=== PATIENT | female | born 2000 | race Caucasian/White ===

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

== ENCOUNTER 2020-06-12 09:18 | Emergency (ER) | payer MEDICAID ==
[~2020-06-12] VITALS: Ht 165.1 cm; Wt 72.7 kg
[2020-06-12] MEDS ORDERED: ACETAMINOPHEN 500 MG TABLET PO ONE (10:00)
[2020-06-12 10:25] LABS: BASOPHILS % (AUTO) 0.4 % (0.0-2.0); EOSINOPHILS % (AUTO) 0.9 % (1.0-6.0); HEMATOCRIT 38.6 % (36-46); HEMOGLOBIN 13.5 g/dL (12.0-16.0); LYMPHOCYTES # (AUTO) 1.4 K/uL (1.0-4.8); LYMPHOCYTES % (AUTO) 17.6 % (22.0-44.0); MEAN CORPUSCULAR HEMOGLOBIN 30.7 pg (26.0-34.0); MEAN CORPUSCULAR HGB CONC 35.1 G/dL (31.0-37.0); MEAN CORPUSCULAR VOLUME 88 fL (80-100); MONOCYTES # (AUTO) 0.6 K/uL (0.1-1.0); MONOCYTES % (AUTO) 7.9 % (2.0-9.0); NEUTROPHILS # (AUTO) 5.8 K/uL (1.8-7.7); NEUTROPHILS % (AUTO) 73.2 % (40.0-70.0); PLATELET COUNT (AUTO) 280 K/uL (150-450); RED BLOOD CELL COUNT(AUTO) 4.41 MIL/uL (4.00-5.20); RED CELL DISTRIBUTION WIDTH 12.7 % (11.5-14.5)
[2020-06-12 10:37] LABS: ANION GAP 9 mmol/L (8-16); CALCIUM, TOTAL 8.4 mg/dL (8.8-10.5); CARBON DIOXIDE 25 mmol/L (22-29); CHLORIDE 102 mmol/L (98-107); CREATININE 0.84 mg/dL (0.60-1.30); GLOMERULAR FILTR. RATE CALC > 60 mL/min (>60); GLUCOSE,RANDOM 82 mg/dL (70-110); POTASSIUM 3.5 mmol/L (3.5-5.1); SODIUM SERUM 136 mmol/L (136-145); UREA NITROGEN, BLOOD 7 mg/dL (7-18)
[2020-06-12] MEDS ORDERED: SODIUM CHLORIDE 0.9% 100 ML ONE (11:12)
[2020-06-12] MEDS ORDERED: IOVERSOL 320 MG/ML 100 ML VIAL ONE (11:12)
[2020-06-12 12:53] VITALS: BP 108/61
== END 2020-06-12 13:05 | disposition home or self-care (01) ==
LOC: EMS 09:19
DX: O26.891 Other specified pregnancy related conditions, first trimester (principal); R07.81 Pleurodynia; Z3A.01 Less than 8 weeks gestation of pregnancy
CPT/HCPCS: 36415; 71045; 71275; 80048; 85025; 85379; 99285; J7050; Q9967

== ENCOUNTER 2021-07-11 14:18 | Emergency (ER) | payer MEDICAID, OTHER ==
[~2021-07-11] VITALS: Ht 165.1 cm; Wt 72.7 kg
[2021-07-11] MEDS ORDERED: ACETAMINOPHEN 500 MG TABLET PO ONE (15:00)
[2021-07-11 15:31] VITALS: BP 122/70
== END 2021-07-11 15:32 | disposition home or self-care (01) ==
LOC: EMS 14:22
DX: R51.9 Headache, unspecified (principal); R09.81 Nasal congestion; J45.909 Unspecified asthma, uncomplicated; Z20.822 Contact with and (suspected) exposure to COVID-19
CPT/HCPCS: 99283; U0003

== ENCOUNTER 2022-10-14 08:37 | Emergency (ER) | payer OTHER ==
[~2022-10-14] VITALS: Ht 165.1 cm; Wt 77.3 kg
[2022-10-14 08:56] LABS: COVID AG,FIA SOURCE NASAL SWAB
[2022-10-14 09:16] LABS: INFLUENZA TYPE A NEGATIVE FOR TYPE A (NEGATIVE); INFLUENZA TYPE B NEGATIVE FOR TYPE B (NEGATIVE)
[2022-10-14] MEDS ORDERED: AMOX250C4 PO (10:04)
[2022-10-14 10:10] VITALS: BP 122/87
== END 2022-10-14 10:22 | disposition home or self-care (01) ==
LOC: EMS 08:40
DX: J03.90 Acute tonsillitis, unspecified (principal); J45.909 Unspecified asthma, uncomplicated; Z90.49 Acquired absence of other specified parts of digestive tract; Z20.822 Contact with and (suspected) exposure to COVID-19
CPT/HCPCS: 87430; 87804; 99283

== ENCOUNTER 2023-07-29 15:44 | Emergency (ER) | payer OTHER ==
[~2023-07-29] VITALS: Ht 165.1 cm; Wt 80.9 kg
[~2023-07-29 15:44] MED LIST: AMOX250C4 PO
[2023-07-29 15:58] VITALS: TEMP 98.1
[2023-07-29] MEDS ORDERED: KETOROLAC TROMETHAMINE 60 MG/2 ML VIAL IM ONE (17:00)
[2023-07-29 17:44] VITALS: BP 134/74; PULSE 64; RESP 17
[2023-07-29] MEDS ORDERED: IBUP-1492 PO (17:50)
== END 2023-07-29 19:11 | disposition home or self-care (01) ==
LOC: EMS 15:45
DX: S16.1XXA Strain of muscle, fascia and tendon at neck level, initial encounter (principal); J45.909 Unspecified asthma, uncomplicated; Z90.49 Acquired absence of other specified parts of digestive tract; Z98.890 Other specified postprocedural states; V89.2XXA Person injured in unspecified motor-vehicle accident, traffic, initial encounter; Y93.89 Activity, other specified; Y92.89 Other specified places as the place of occurrence of the external cause; Y99.8 Other external cause status
CPT/HCPCS: 99283; 71045; 82962; 96372; J1885

== ENCOUNTER 2023-10-09 08:32 | Emergency (ER) | payer OTHER ==
[~2023-10-09] VITALS: Ht 165.1 cm; Wt 78.2 kg
[~2023-10-09 08:32] MED LIST changes: -AMOX250C4 PO; +IBUP-1492 PO
[2023-10-09 08:37] VITALS: TEMP 98.1
[2023-10-09 09:44] VITALS: BP 112/70; PULSE 75; RESP 14
== END 2023-10-09 09:45 | disposition home or self-care (01) ==
LOC: EMS 08:43
DX: S83.91XA Sprain of unspecified site of right knee, initial encounter (principal); Z98.890 Other specified postprocedural states; Z90.49 Acquired absence of other specified parts of digestive tract; X58.XXXA Exposure to other specified factors, initial encounter; Y93.89 Activity, other specified; Y92.89 Other specified places as the place of occurrence of the external cause; Y99.8 Other external cause status
CPT/HCPCS: 99283

== ENCOUNTER 2024-07-08 19:53 | Emergency (ER) | payer MEDICAID, OTHER ==
[~2024-07-08] VITALS: Ht 165.1 cm; Wt 79.5 kg
[2024-07-08 20:02] VITALS: TEMP 100.7
[2024-07-08 20:19] LABS: COVID AG,FIA SOURCE NASAL SWAB
[2024-07-08 20:30] LABS: RAPID GROUP A STREP NEGATIVE (NEGATIVE)
[2024-07-08 20:37] LABS: SARS-COV2 (COVID) ANTIGEN,FIA Negative (Negative)
[2024-07-08 20:39] LABS: INFLUENZA TYPE A NEGATIVE FOR TYPE A (NEGATIVE); INFLUENZA TYPE B NEGATIVE FOR TYPE B (NEGATIVE)
[2024-07-08 22:00] VITALS: BP 123/70; PULSE 85; RESP 18; O2SAT 98
[2024-07-08] MEDS ORDERED: ACET-2080 PO (22:43)
[2024-07-08] MEDS: IBUPROFEN 600 MG TABLET PO ONE (22:43)
[2024-07-08] MEDS: CEPHALEXIN MONOHYDRATE 500 MG CAPSULE PO ONE (22:43)
[2024-07-08] MEDS ORDERED: IBUP-1554 PO (22:43)
[2024-07-08] MEDS ORDERED: CEPH-558 PO (22:43)
[2024-07-08] MEDS: ACETAMINOPHEN/CODEINE 300-30 MG TABLET PO ONE (22:44)
== END 2024-07-08 22:53 | disposition home or self-care (01) ==
LOC: EMS 19:53
DX: J02.9 Acute pharyngitis, unspecified (principal); Z90.49 Acquired absence of other specified parts of digestive tract; Z98.890 Other specified postprocedural states; Z20.822 Contact with and (suspected) exposure to COVID-19
CPT/HCPCS: 87430; 87804; 99284; Z7502; Z7610